=== PATIENT | female | born 1985 | race American Indian/Alaskan Native ===

== ENCOUNTER 2017-03-17 09:17 | Day surgery (SDC) | payer OTHER ==
[2017-03-11 15:13] VITALS: BMI 33.2
[2017-03-17] MEDS ORDERED: Lactated Ringer's 1,000 ML IV ONE (10:03)
[2017-03-17 10:07] LABS: HEMATOCRIT 30.7 % (34.0-47.0); MEAN CELL VOLUME 78.5 fl (81.0-99.0); MEAN CORPUSCULAR HEMOGLOBIN 24.9 pg (27.0-31.0); MEAN CORPUSCULAR HGB CONC 31.8 g/dL (33.0-37.0); RED CELL DISTRIBUTION WIDTH 20.6 % (11.5-14.5); WHITE BLOOD COUNT 4.9 K/uL (4.8-10.8)
[2017-03-17] MEDS ORDERED: Propofol 10 mg/ml Inj (20 ML) ONE ×2 (10:48→11:28)
[2017-03-17] MEDS ORDERED: ePHEDrine 50 mg/ml Inj ONE (10:49)
[2017-03-17] MEDS ORDERED: Succinylcholine 200 mg/10 ml Inj IV ONE (10:49)
[2017-03-17] MEDS ORDERED: Midazolam 2 MG/2 ML VIAL ONE (10:49)
[2017-03-17] MEDS ORDERED: Lidocaine 4% (Laryng-O-Jet) Kit MM ONE (10:49)
--- NOTE | 2017-03-17 10:53 | CP.PCM.HP ---
History of Present Illness - History of Present Illness History of Present Illness: 32yo female with h/o irregular bleeding and irregularly thickened endometrium on pelvic ultrasound. Pt consented for hysteroscopy, D&C and removal of any polyps or fibroids. Discussed the R/B/A of surgery with patient and all questions answered. Present on Admission - Present on Admission Any Indicators Present on Admission: No History of DVT/PE: No History of Uncontrolled Diabetes: No Urinary Catheter: No Decubitus Ulcer Present: No Past Patient History - Infectious Disease Hx of Infectious Diseases: None - Tetanus Immunizations Tetanus Immunization: Unknown - Past Medical History & Family History Past Medical History?: Yes - Past Social History Smoking Status: Never Smoked - CARDIAC Hx Cardiac Disorders: No - PULMONARY Hx Respiratory Disorders: No - NEUROLOGICAL Hx Neurological Disorder: No - HEENT Hx HEENT Problems: No - RENAL Hx Chronic Kidney Disease: No Hx Kidney Stones: Yes - ENDOCRINE/METABOLIC Hx Endocrine Disorders: No - HEMATOLOGICAL/ONCOLOGICAL Hx Blood Disorders: Yes Hx Anemia: Yes - INTEGUMENTARY Hx Dermatological Problems: No - MUSCULOSKELETAL/RHEUMATOLOGICAL Hx Musculoskeletal Disorders: No Hx Falls: No - GASTROINTESTINAL Hx Gastrointestinal Disorders: No Other/Comment: kidney stone - GENITOURINARY/GYNECOLOGICAL Hx Genitourinary Disorders: No Hx Urinary Tract Infection: Yes - PSYCHIATRIC Hx Psychophysiologic Disorder: No Hx Depression: No Hx Emotional Abuse: No Hx Physical Abuse: No Hx Substance Use: No - SURGICAL HISTORY Hx Surgeries: Yes Hx Section: Yes (X1) - ANESTHESIA Hx Anesthesia: Yes Hx Anesthesia Reactions: No Hx Malignant Hyperthermia: No Has any member of the family had a problem w/ anesthesia?: No Meds Allergies/Adverse Reactions: Allergies Allergy/AdvReac Type Severity Reaction Status Date / Time aldosterone Allergy RASH Verified 01/09/17 18:59 betamethasone Allergy RASH Verified 01/09/17 18:59 [From Lotrisone] clotrimazole [From Lotrisone] Allergy RASH Verified 01/09/17 18:59 clindamycin AdvReac Intermediate RASH Verified 01/09/17 18:59 Physical Exam - Constitutional Appears: Well, No Acute Distress - Head Exam Head Exam: ATRAUMATIC - Eye Exam Eye Exam: Normal appearance, PERRL - ENT Exam ENT Exam: Mucous Membranes Moist - Respiratory Exam Respiratory Exam: Clear to Auscultation Bilateral, NORMAL BREATHING PATTERN - Cardiovascular Exam Cardiovascular Exam: REGULAR RHYTHM - GI/Abdominal Exam GI & Abdominal Exam: Soft. absent: Distended, Tenderness - Extremities Exam Extremities exam: Positive for: full ROM, normal inspection. Negative for: calf tenderness Results - Vital Signs Recent Vital Signs: Last Vital Signs Temp 98.3 F 03/17/17 09:42 Pulse 67 03/17/17 09:44 Resp 20 03/17/17 09:42 BP 139/77 03/17/17 09:42 Pulse Ox 100 03/17/17 09:42 - Labs Result Diagrams: 03/17/17 09:45 Labs: Laboratory Results - last 24 hr 03/17/17 09:45 WBC 4.9 RBC 3.91 Hgb 9.7 L Hct 30.7 L MCV 78.5 L MCH 24.9 L MCHC 31.8 L RDW 20.6 H Plt Count 233 - Imaging and Cardiology US - abdomen Status: Report reviewed by me Assessment & Plan - Assessment and Plan (Free Text) Assessment: Irregular bleeding and menorrhagia, thickened endometrium Plan: As above. Routine postop observation and care - Date & Time Date: 03/17/17 Time: 10:54
[2017-03-17] MEDS ORDERED: Dexamethasone 4 mg/1 ml ONE (11:14)
[2017-03-17] MEDS ORDERED: HYDROmorphone 0.5 mg/0.5 ml ISec IVP PRN (11:38)
--- NOTE | 2017-03-17 11:40 | PCM.SURG1 ---
Surgeon's Initial Post Op Note - Surgeon's Notes Surgeon: Guerda Marketing Clerk: N/A Type of Anesthesia: General Endo Pre-Operative Diagnosis: Menorrhagia, thickened endometrium Operative Findings: Multiple endometrial polyps, otherwise normal appearing pelvic anatomy Post-Operative Diagnosis: Same Operation Performed: Hysteroscopy, D&C, endometrial polypectomy Specimen/Specimens Removed: Endometrial polyps Estimated Blood Loss: EBL {In ML}: 50 Blood Products Given: N/A Drains Used: No Drains Post-Op Condition: Good Date of Surgery/Procedure: 03/17/17 Time of Surgery/Procedure: 11:40
[2017-03-17] MEDS ORDERED: Oxycodone/Acetaminophen 5/325 mg Tab PO PRN (11:42)
--- NOTE | 2017-03-17 11:42 | CP.PCM.DIS ---
Provider - Provider Attending physician: Kendall Croft MD Primary care physician: Jorden Harris MD Time Spent in preparation of Discharge (in minutes): 10 Diagnosis - Discharge Diagnosis (1) Menorrhagia Status: Chronic (2) Thickened endometrium Status: Chronic Hospital Course - Lab Results Lab Results: Most Recent Lab Values WBC 4.9 K/uL (4.8-10.8) 03/17/17 09:45 RBC 3.91 Mil/uL (3.80-5.20) 03/17/17 09:45 Hgb 9.7 g/dL (12.0-16.0) L 03/17/17 09:45 Hct 30.7 % (34.0-47.0) L 03/17/17 09:45 MCV 78.5 fl (81.0-99.0) L 03/17/17 09:45 MCH 24.9 pg (27.0-31.0) L 03/17/17 09:45 MCHC 31.8 g/dL (33.0-37.0) L 03/17/17 09:45 RDW 20.6 % (11.5-14.5) H 03/17/17 09:45 Plt Count 233 K/uL (130-400) 03/17/17 09:45 Discharge Exam - Head Exam Head Exam: ATRAUMATIC Discharge Plan - Follow Up Plan Condition: GOOD Disposition: HOME/ ROUTINE Referrals: Jorden Harris MD [Primary Care Provider] -
[2017-03-17] MEDS ORDERED: Lactated Ringer's 1,000 ML IV SCH ×2 (11:45)
[2017-03-17 12:26] VITALS: RESP 18
[2017-03-17 15:21] VITALS: BP 130/70; PULSE 68; TEMP 98; O2SAT 100
--- NOTE | 2017-03-17 23:25 | OP ---
PROCEDURE DATE: 03/17/2017 PREOPERATIVE DIAGNOSES: Menorrhagia, thickened endometrium on ultrasound. POSTOPERATIVE DIAGNOSES: Menorrhagia, thickened endometrium on ultrasound, plus endometrial polyps. OPERATION PERFORMED: Hysteroscopy, D and C, endometrial polypectomy. SURGEON: Dr. Kendall Croft. TYPE OF ANESTHESIA: General. ESTIMATED BLOOD LOSS: 50 mL. FLUIDS: 300 mL lactated Ringer's. URINE OUTPUT: 100 mL of clear urine. COMPLICATIONS: None. DESCRIPTION OF PROCEDURE: The patient was taken to the operating room where general anesthesia was found to be adequate. The patient was prepped and draped in normal sterile fashion in the dorsal lithotomy position. A weighted speculum was placed at the posterior aspect of the vagina. A Haley retractor was placed at the anterior surface of the vagina. The cervix was grasped with a single tooth tenaculum at the anterior surface. The cervix was dilated with a Camp dilator to a size of 20-British. The hysteroscope was placed through the cervix into the uterine cavity. Multiple endometrial polyps were directly observed. The MyoSure device was placed through the hysteroscope into the uterine cavity. Device was activated and polyps were removed under direct visualization. The MyoSure device was removed from the hysteroscope. The endometrium was re-observed. All sites were found to be hemostatic. The hysteroscope was removed from the patient. The tenaculum was removed from the patient. Both the tenaculum site and cervical os was found to be hemostatic. The patient tolerated the procedure well. All sponge count, lap count and needle counts were correct x2. There were no complications. The patient was taken to the recovery room awake and in stable condition. Kendall Croft MD
== END 2017-03-17 14:15 | disposition home or self-care (01) ==
LOC: H.OPSURG 09:17
PROVIDERS: ATTEND Obstetrics & Gynecology
DX: N84.0 Polyp of corpus uteri (principal); D50.8 Other iron deficiency anemias; N92.0 Excessive and frequent menstruation with regular cycle
CPT/HCPCS: 36415; 58558; 85027; 88305; J0330; J1100; J1170; J2001; J2250; J2405; J2704; J3010; J7030; J7120